=== PATIENT | female | born 1985 | race Caucasian/White ===

== ENCOUNTER 2016-05-27 08:37 | Emergency (ER) | payer OTHER | END 2016-05-27 10:19 | disposition home or self-care (01) | LOC: FER 08:37 | DX: S43.402A Unspecified sprain of left shoulder joint, initial encounter (principal); E11.40 Type 2 diabetes mellitus with diabetic neuropathy, unspecified; Z87.442 Personal history of urinary calculi; Z87.19 Personal history of other diseases of the digestive system; Z88.2 Allergy status to sulfonamides; W08.XXXA Fall from other furniture, initial encounter | CPT/HCPCS: 72040; 73030; 99283 ==

== ENCOUNTER 2020-03-05 19:31 | Emergency (ER) | payer OTHER ==
[~2020-03-05 19:31] MED LIST: AZITHROMYCIN250 MG PO; BACLOFEN 10MG T10 MG PO; BENTYL10 MG PO; CARAFATE1 G1 PO; CARAFATE1 GM PO; CEFDINIR300 MG PO; CLEOCIN300 MG PO; FAMCICLOVIR500 MG PO; FLEXERIL10 MG PO; HUMALOG 75100 UNIT/M SC; HUMALOG100 UNIT/1 SC; IBUPROFEN800 MG PO; K-DUR20 MEQ PO; MACROBID100 MG PO; NAPROSYN500 MG PO; NEURONTIN400 MG PO; NORCO 5-325 TA1 EACH PO; OMEPRAZOLE 20MG20 MG PO; PERCOCET 5-3251 EACH PO; PHENERGAN25 M1 PO; PHENERGAN25 MG PR; PROMETHEGA12.5 MG/SU PR; PROTONIX 40MG T40 MG PO; TRESIBA FL100 UNIT/1 SC; VALACYCLOVIR1000 MG PO; ZANTAC150 MG PO; ZOFRAN4 MG PO; ZOFRAN4 MG SL; ZOVIRAX800 MG PO
[2020-03-05 20:17] LABS: BASOPHIL 0.6 % (0-2); EOSINOPHIL 1.3 % (0-5); HCT 41.8 % (37.0-47.0); HGB 14.4 g/dl (12.5-16.0); LYMPHOCYTE 23.6 % (15-48); MCH 29.4 pg (25.0-31.0); MCHC 34.4 g/dL (32.0-36.0); MCV 85.5 fL (78.0-100.0); MONOCYTE 4.1 % (0-12); MPV 10.4 fL (6.0-9.5); NEUTROPHIL 70.3 % (41-80); NRBC 0; PLT 302 K/uL (150-400); RBC 4.89 M/uL (4.20-5.40); RDW 12.3 % (11.5-14.0); WBC 6.9 K/uL (4.0-10.5)
[2020-03-05 20:26] LABS: ALBUMIN 3.7 g/dL (3.4-5.0); BILIRUBIN - TOTAL 0.2 mg/dL (0.2-1.0); BUN/CREAT RATIO (CALC) 10.7 RATIO; CREATININE 0.56 mg/dL (0.51-0.95); GLOBULIN (CALCULATION) 4.2 g/dL; POTASSIUM 3.8 mmol/L (3.5-5.1); TOTAL PROTEIN 7.9 g/dL (6.4-8.2)
[2020-03-05 20:31] LABS: LACTIC ACID 2.4 mmol/L (0.4-1.9)
[2020-03-05 20:39] LABS: BILIRUBIN NEGATIVE (NEGATIVE); BLOOD 3+ Ery/uL (NEGATIVE); CLARITY CLEAR (CLEAR); COLOR YELLOW (YELLOW); GLUCOSE (U) 3+ mg/dL (NORMAL); LEUKOCYTES TRACE Leu/uL (NEGATIVE); NITRITE NEGATIVE (NEGATIVE); PROTEIN NEGATIVE (NEGATIVE); SPECIFIC GRAVITY <=1.005 (1.001-1.030); UROBILINOGEN 0.2 mg/dL (0.2-1.0)
[2020-03-05 20:46] LABS: BACTERIA TRACE; URINARY RBC 20-50; URINARY WBC RARE
[2020-03-05] MEDS ORDERED: PERCOCET 5-3251 EACH PO (23:41)
[2020-03-05] MEDS ORDERED: FLOMAX0.4 MG PO (23:41)
[2020-03-05] MEDS ORDERED: ONDANSETRON ODT4 MG SL (23:41)
== END 2020-03-05 23:56 | disposition home or self-care (01) ==
LOC: FER 19:31
PROVIDERS: Emergency Medicine Emergency Medical Services
DX: R10.32 Left lower quadrant pain (principal); R31.9 Hematuria, unspecified; R11.2 Nausea with vomiting, unspecified; R19.7 Diarrhea, unspecified; E11.40 Type 2 diabetes mellitus with diabetic neuropathy, unspecified; K21.9 Gastro-esophageal reflux disease without esophagitis; Z86.16 Personal history of COVID-19; Z90.49 Acquired absence of other specified parts of digestive tract; Z90.710 Acquired absence of both cervix and uterus; Z98.890 Other specified postprocedural states; Z88.5 Allergy status to narcotic agent; Z88.8 Allergy status to other drugs, medicaments and biological substances; Z88.2 Allergy status to sulfonamides; Z79.4 Long term (current) use of insulin; Z79.899 Other long term (current) drug therapy
CPT/HCPCS: 36415; 80053; 81001; 82009; 83605; 83690; 84145; 85025; 93005; J1170; J2405; J7030; Q9967

== ENCOUNTER 2020-03-09 10:14 | Day surgery (SDCO) | payer OTHER ==
[~2020-03-09 10:14] MED LIST changes: +FLOMAX0.4 MG PO; +ONDANSETRON ODT4 MG SL
[2020-03-09 11:44] LABS: BASOPHIL 0.4 % (0-2); EOSINOPHIL 1.5 % (0-5); HCT 39.9 % (37.0-47.0); HGB 13.8 g/dl (12.5-16.0); LYMPHOCYTE 20.3 % (15-48); MCH 29.7 pg (25.0-31.0); MCHC 34.6 g/dL (32.0-36.0); MCV 85.8 fL (78.0-100.0); MONOCYTE 4.7 % (0-12); MPV 10.7 fL (6.0-9.5); NEUTROPHIL 72.8 % (41-80); NRBC 0; PLT 303 K/uL (150-400); RBC 4.65 M/uL (4.20-5.40); RDW 12.4 % (11.5-14.0)
[2020-03-09 11:58] LABS: ALBUMIN 3.4 g/dL (3.4-5.0); BILIRUBIN - TOTAL 0.2 mg/dL (0.2-1.0); BUN/CREAT RATIO (CALC) 15.8 RATIO; CREATININE 0.57 mg/dL (0.51-0.95); GLOBULIN (CALCULATION) 4.2 g/dL; POTASSIUM 3.9 mmol/L (3.5-5.1); TOTAL PROTEIN 7.6 g/dL (6.4-8.2)
[2020-03-09 14:07] LABS: BILIRUBIN NEGATIVE (NEGATIVE); BLOOD TRACE-INTACT Ery/uL (NEGATIVE); CLARITY CLEAR (CLEAR); COLOR YELLOW (YELLOW); GLUCOSE (U) 3+ mg/dL (NORMAL); LEUKOCYTES NEGATIVE Leu/uL (NEGATIVE); NITRITE NEGATIVE (NEGATIVE); PROTEIN NEGATIVE (NEGATIVE); SPECIFIC GRAVITY <=1.005 (1.001-1.030); UROBILINOGEN 0.2 mg/dL (0.2-1.0); pH 6.5 (5.0-9.0)
[2020-03-09 14:13] LABS: BACTERIA 1+; URINARY RBC RARE
[2020-03-09 14:19] LABS: CORONAVIRUS 2019 SARS-COV-2 NEGATIVE (NEGATIVE); INFLUENZA A NAA NEGATIVE (NEGATIVE)
[2020-03-09] MEDS ORDERED: PRILOSEC20 MG PO (14:58)
[2020-03-09] MEDS ORDERED: ATARAX25 MG PO (15:01)
[2020-03-10 07:11] LABS: BASOPHIL 0.5 % (0-2); EOSINOPHIL 2.7 % (0-5); HCT 36.2 % (37.0-47.0); HGB 11.9 g/dl (12.5-16.0); LYMPHOCYTE 35.6 % (15-48); MCH 29.2 pg (25.0-31.0); MCHC 32.9 g/dL (32.0-36.0); MCV 88.7 fL (78.0-100.0); MONOCYTE 5.3 % (0-12); MPV 10.5 fL (6.0-9.5); NEUTROPHIL 55.7 % (41-80); NRBC 0; PLT 259 K/uL (150-400); RBC 4.08 M/uL (4.20-5.40); RDW 12.5 % (11.5-14.0); WBC 8.5 K/uL (4.0-10.5)
[2020-03-10 07:29] LABS: CREATININE 0.6 mg/dL (0.51-0.95); POTASSIUM 4.2 mmol/L (3.5-5.1)
[2020-03-11 06:54] LABS: BASOPHIL 0.5 % (0-2); EOSINOPHIL 2.3 % (0-5); HCT 38.1 % (37.0-47.0); HGB 12.7 g/dl (12.5-16.0); LYMPHOCYTE 25.6 % (15-48); MCH 29.2 pg (25.0-31.0); MCHC 33.3 g/dL (32.0-36.0); MCV 87.6 fL (78.0-100.0); MONOCYTE 5.6 % (0-12); MPV 10.8 fL (6.0-9.5); NEUTROPHIL 65.8 % (41-80); NRBC 0; PLT 267 K/uL (150-400); RBC 4.35 M/uL (4.20-5.40); RDW 12.2 % (11.5-14.0)
[2020-03-11 07:19] LABS: ALBUMIN 3.1 g/dL (3.4-5.0); BILIRUBIN - TOTAL 0.2 mg/dL (0.2-1.0); BUN/CREAT RATIO (CALC) 6.5 RATIO; CREATININE 0.62 mg/dL (0.51-0.95); GLOBULIN (CALCULATION) 3.8 g/dL; POTASSIUM 3.5 mmol/L (3.5-5.1); TOTAL PROTEIN 6.9 g/dL (6.4-8.2)
[2020-03-11] MEDS ORDERED: PROTONIX 40MG T40 MG PO (10:34)
[2020-03-11] MEDS ORDERED: CARAFATE S500 MG/TSP PO (10:34)
[2020-03-11] MEDS ORDERED: TRESIBA FL100 UNIT/1 SC (10:34)
[2020-03-11] MEDS ORDERED: PHENERGAN12.5 M1 PO (10:34)
[2020-03-11] MEDS ORDERED: ONDANSETRON ODT4 MG PO (10:34)
[2020-03-11] MEDS ORDERED: OXYCODONE-ACET1 EAC1 PO (10:34)
[2020-03-11] MEDS ORDERED: GLUCAGON EMERGEN1 MG IM (14:05)
== END 2020-03-11 15:25 | disposition home or self-care (01) ==
LOC: FER 10:14 → FMS 13:09
PROVIDERS: Allergy & Immunology Allergy; Emergency Medicine; ADMIT Internal Medicine
DX: E11.43 Type 2 diabetes mellitus with diabetic autonomic (poly)neuropathy (principal); E11.65 Type 2 diabetes mellitus with hyperglycemia; K31.84 Gastroparesis; K52.9 Noninfective gastroenteritis and colitis, unspecified; K21.9 Gastro-esophageal reflux disease without esophagitis; K27.9 Peptic ulcer, site unspecified, unspecified as acute or chronic, without hemorrhage or perforation; M79.7 Fibromyalgia; E11.40 Type 2 diabetes mellitus with diabetic neuropathy, unspecified; Z79.4 Long term (current) use of insulin; Z79.899 Other long term (current) drug therapy; Z88.2 Allergy status to sulfonamides; Z88.5 Allergy status to narcotic agent; Z88.8 Allergy status to other drugs, medicaments and biological substances; Z20.822 Contact with and (suspected) exposure to COVID-19
CPT/HCPCS: 36415; 74220; 80048; 80053; 81001; 82009; 82962; 83690; 85025; 87045; 87046; 87077; 87205; 87339; C9113; G0378; J1170; J2270; J2405; J2765; J3480; J7030; U0002

== ENCOUNTER 2020-03-31 21:38 | Emergency (ER) | payer OTHER ==
[~2020-03-31 21:38] MED LIST changes: +ATARAX25 MG PO; +CARAFATE S500 MG/TSP PO; +GLUCAGON EMERGEN1 MG IM; +ONDANSETRON ODT4 MG PO; +OXYCODONE-ACET1 EAC1 PO; +PHENERGAN12.5 M1 PO; +PRILOSEC20 MG PO
[2020-03-31 22:16] LABS: BASOPHIL 0.6 % (0-2); EOSINOPHIL 0.9 % (0-5); HCT 39.9 % (37.0-47.0); HGB 13.8 g/dl (12.5-16.0); LYMPHOCYTE 22.1 % (15-48); MCH 29.3 pg (25.0-31.0); MCHC 34.6 g/dL (32.0-36.0); MCV 84.7 fL (78.0-100.0); MONOCYTE 4.8 % (0-12); MPV 10.4 fL (6.0-9.5); NEUTROPHIL 71.2 % (41-80); NRBC 0; PLT 307 K/uL (150-400); RBC 4.71 M/uL (4.20-5.40); RDW 12.3 % (11.5-14.0); WBC 8.5 K/uL (4.0-10.5)
[2020-03-31 22:42] LABS: LACTIC ACID 2.9 mmol/L (0.4-1.9)
[2020-03-31 22:46] LABS: ALBUMIN 3.6 g/dL (3.4-5.0); BILIRUBIN - TOTAL 0.2 mg/dL (0.2-1.0); CREATININE 0.6 mg/dL (0.51-0.95); GLOBULIN (CALCULATION) 4.1 g/dL; POTASSIUM 3.4 mmol/L (3.5-5.1); TOTAL PROTEIN 7.7 g/dL (6.4-8.2)
[2020-03-31 22:51] LABS: BILIRUBIN NEGATIVE (NEGATIVE); BLOOD TRACE-INTACT Ery/uL (NEGATIVE); CLARITY CLEAR (CLEAR); COLOR YELLOW (YELLOW); GLUCOSE (U) 2+ mg/dL (NORMAL); LEUKOCYTES 2+ Leu/uL (NEGATIVE); NITRITE NEGATIVE (NEGATIVE); PROTEIN NEGATIVE (NEGATIVE); SPECIFIC GRAVITY <=1.005 (1.001-1.030); UROBILINOGEN 0.2 mg/dL (0.2-1.0)
[2020-03-31 23:03] LABS: BACTERIA 2+
[2020-04-01] MEDS ORDERED: CARAFATE S500 MG/TSP PO (01:47)
[2020-04-01] MEDS ORDERED: OXYCODONE-ACET1 EAC1 PO (01:47)
[2020-04-01] MEDS ORDERED: ONDANSETRON ODT4 MG SL (01:47)
== END 2020-04-01 01:56 | disposition left against medical advice (07) ==
LOC: FER 21:38
PROVIDERS: Emergency Medicine Emergency Medical Services
DX: R10.12 Left upper quadrant pain (principal); R00.0 Tachycardia, unspecified; R11.2 Nausea with vomiting, unspecified; U07.1 COVID-19; E11.40 Type 2 diabetes mellitus with diabetic neuropathy, unspecified; E11.43 Type 2 diabetes mellitus with diabetic autonomic (poly)neuropathy; K31.84 Gastroparesis; Z88.2 Allergy status to sulfonamides; Z88.5 Allergy status to narcotic agent; Z88.8 Allergy status to other drugs, medicaments and biological substances
CPT/HCPCS: 36415; 74022; 80053; 81001; 82009; 83605; 83690; 84145; 85025; 87088; 93005; 96372; J0500; J1170; J1885; J2405; J2543; J2550; J7120; U0002

== ENCOUNTER 2020-04-21 18:58 | Emergency (ER) | payer OTHER ==
[2020-04-21 20:27] LABS: BASOPHIL 0.4 % (0-2); EOSINOPHIL 0.3 % (0-5); HCT 38.4 % (37.0-47.0); HGB 13.6 g/dl (12.5-16.0); LYMPHOCYTE 14.8 % (15-48); MCH 29.8 pg (25.0-31.0); MCHC 35.4 g/dL (32.0-36.0); MONOCYTE 3.6 % (0-12); MPV 10.7 fL (6.0-9.5); NEUTROPHIL 80.4 % (41-80); NRBC 0; PLT 328 K/uL (150-400); RBC 4.57 M/uL (4.20-5.40); RDW 12.4 % (11.5-14.0); WBC 10.5 K/uL (4.0-10.5)
[2020-04-21 20:35] LABS: ALBUMIN 3.8 g/dL (3.4-5.0); BILIRUBIN - TOTAL 0.4 mg/dL (0.2-1.0); BUN/CREAT RATIO (CALC) 14.8 RATIO; CREATININE 0.54 mg/dL (0.51-0.95); GLOBULIN (CALCULATION) 4.2 g/dL; POTASSIUM 3.7 mmol/L (3.5-5.1)
[2020-04-21 21:18] LABS: BILIRUBIN NEGATIVE (NEGATIVE); BLOOD TRACE-INTACT Ery/uL (NEGATIVE); CLARITY CLEAR (CLEAR); COLOR YELLOW (YELLOW); GLUCOSE (U) 3+ mg/dL (NORMAL); LEUKOCYTES 1+ Leu/uL (NEGATIVE); NITRITE NEGATIVE (NEGATIVE); PROTEIN NEGATIVE (NEGATIVE); SPECIFIC GRAVITY <=1.005 (1.001-1.030); UROBILINOGEN 0.2 mg/dL (0.2-1.0)
[2020-04-21 21:27] LABS: BACTERIA 2+; URINARY RBC RARE; YEAST PRESENT
[2020-04-22] MEDS ORDERED: ZOVIRAX800 MG PO (02:07)
[2020-04-22] MEDS ORDERED: NEURONTIN300 MG PO (02:07)
[2020-04-22] MEDS ORDERED: PERCOCET 5-3251 EACH PO (02:07)
[2020-04-22] MEDS ORDERED: COMPAZINE10 MG PO (02:07)
== END 2020-04-22 02:23 | disposition home or self-care (01) ==
LOC: FER 18:58
PROVIDERS: Nurse Practitioner Family
DX: R10.84 Generalized abdominal pain (principal); R11.2 Nausea with vomiting, unspecified; B02.9 Zoster without complications; E10.43 Type 1 diabetes mellitus with diabetic autonomic (poly)neuropathy; K31.84 Gastroparesis; Z88.2 Allergy status to sulfonamides; Z88.5 Allergy status to narcotic agent; Z88.8 Allergy status to other drugs, medicaments and biological substances
CPT/HCPCS: 36415; 80053; 81001; 83690; 84484; 85025; 93005; J0780; J1170; J1200; J1885; J2405; J7030; Q9967

== ENCOUNTER 2020-04-25 21:35 | Emergency (ER) | payer OTHER ==
[~2020-04-25 21:35] MED LIST changes: +COMPAZINE10 MG PO; +NEURONTIN300 MG PO
[2020-04-25 22:54] LABS: BILIRUBIN NEGATIVE (NEGATIVE); BLOOD TRACE-INTACT Ery/uL (NEGATIVE); CLARITY CLEAR (CLEAR); COLOR YELLOW (YELLOW); GLUCOSE (U) 3+ mg/dL (NORMAL); LEUKOCYTES 1+ Leu/uL (NEGATIVE); NITRITE NEGATIVE (NEGATIVE); PROTEIN NEGATIVE (NEGATIVE); UROBILINOGEN 0.2 mg/dL (0.2-1.0)
[2020-04-25 23:01] LABS: URINARY RBC RARE
[2020-04-25 23:02] LABS: AMORPHOUS URATES CRYSTALS MODERATE; BACTERIA 1+
[2020-04-25] MEDS ORDERED: PERCOCET 7.5/321 TAB PO (23:11)
[2020-04-25] MEDS ORDERED: LIDOCAINE 5% P1 EACH TOP (23:11)
[2020-04-25] MEDS ORDERED: ZOVIRAX200 MG/5 M PO (23:14)
== END 2020-04-26 00:04 | disposition home or self-care (01) ==
LOC: FER 21:35
PROVIDERS: Emergency Medicine Emergency Medical Services
DX: B02.9 Zoster without complications (principal); E11.40 Type 2 diabetes mellitus with diabetic neuropathy, unspecified; R10.84 Generalized abdominal pain; Z79.4 Long term (current) use of insulin; Z88.5 Allergy status to narcotic agent; Z88.8 Allergy status to other drugs, medicaments and biological substances; Z88.2 Allergy status to sulfonamides
CPT/HCPCS: 81001; 96372; 99283; J1170; J2405; J2550

== ENCOUNTER 2020-04-29 14:58 | Emergency (ER) | payer OTHER ==
[~2020-04-29 14:58] MED LIST changes: +LIDOCAINE 5% P1 EACH TOP; +PERCOCET 7.5/321 TAB PO; +ZOVIRAX200 MG/5 M PO
[2020-04-29 17:30] LABS: BASOPHIL 0.5 % (0-2); EOSINOPHIL 0.6 % (0-5); HCT 37.5 % (37.0-47.0); HGB 13.2 g/dl (12.5-16.0); MCH 30.2 pg (25.0-31.0); MCHC 35.2 g/dL (32.0-36.0); MCV 85.8 fL (78.0-100.0); MONOCYTE 4.6 % (0-12); MPV 10.7 fL (6.0-9.5); NEUTROPHIL 77.1 % (41-80); NRBC 0; PLT 308 K/uL (150-400); RBC 4.37 M/uL (4.20-5.40); RDW 12.4 % (11.5-14.0); WBC 8.6 K/uL (4.0-10.5)
[2020-04-29 17:46] LABS: ALBUMIN 3.7 g/dL (3.4-5.0); BILIRUBIN - TOTAL 0.3 mg/dL (0.2-1.0); CREATININE 0.5 mg/dL (0.51-0.95); GLOBULIN (CALCULATION) 3.8 g/dL; POTASSIUM 3.7 mmol/L (3.5-5.1); TOTAL PROTEIN 7.5 g/dL (6.4-8.2)
[2020-04-29 18:26] LABS: BILIRUBIN NEGATIVE (NEGATIVE); BLOOD NEGATIVE Ery/uL (NEGATIVE); CLARITY CLEAR (CLEAR); COLOR YELLOW (YELLOW); GLUCOSE (U) 3+ mg/dL (NORMAL); LEUKOCYTES TRACE Leu/uL (NEGATIVE); NITRITE NEGATIVE (NEGATIVE); PROTEIN NEGATIVE (NEGATIVE); UROBILINOGEN 0.2 mg/dL (0.2-1.0)
[2020-04-29 18:36] LABS: BACTERIA 2+; URINARY RBC RARE
[2020-04-29] MEDS ORDERED: VALACYCLOVIR1000 MG PO (18:47)
[2020-04-29] MEDS ORDERED: PERCOCET 7.5/321 TAB PO (18:47)
== END 2020-04-29 20:23 | disposition home or self-care (01) ==
LOC: FER 14:58
PROVIDERS: Emergency Medicine
DX: B02.9 Zoster without complications (principal); B02.29 Other postherpetic nervous system involvement; R00.0 Tachycardia, unspecified; R94.31 Abnormal electrocardiogram [ECG] [EKG]; E66.9 Obesity, unspecified; E11.40 Type 2 diabetes mellitus with diabetic neuropathy, unspecified; E11.43 Type 2 diabetes mellitus with diabetic autonomic (poly)neuropathy; K31.84 Gastroparesis; Z88.2 Allergy status to sulfonamides; Z88.8 Allergy status to other drugs, medicaments and biological substances; Z88.5 Allergy status to narcotic agent
CPT/HCPCS: 36415; 71045; 80053; 81001; 83605; 85025; 87040; 87088; 93005; 96372; J1170; J2405; J7030

== ENCOUNTER 2020-05-01 19:18 | Emergency (ER) | payer OTHER ==
[2020-05-01] MEDS ORDERED: ZOFRAN4 M1 PO (20:57)
[2020-05-01] MEDS ORDERED: PERCOCET 7.5/321 TAB PO (20:57)
== END 2020-05-01 21:12 | disposition home or self-care (01) ==
LOC: FER 19:18
DX: B02.9 Zoster without complications (principal); R11.2 Nausea with vomiting, unspecified; Z88.8 Allergy status to other drugs, medicaments and biological substances; Z88.5 Allergy status to narcotic agent; Z88.2 Allergy status to sulfonamides
CPT/HCPCS: 99283; J1170

== ENCOUNTER 2020-05-25 19:20 | Emergency (ER) | payer OTHER ==
[~2020-05-25 19:20] MED LIST changes: +ZOFRAN4 M1 PO
[2020-05-25 20:58] LABS: BASOPHIL 0.6 % (0-2); EOSINOPHIL 2.7 % (0-5); HCT 35.6 % (37.0-47.0); HGB 12.5 g/dl (12.5-16.0); LYMPHOCYTE 19.3 % (15-48); MCHC 35.1 g/dL (32.0-36.0); MCV 85.6 fL (78.0-100.0); MONOCYTE 5.2 % (0-12); MPV 10.7 fL (6.0-9.5); NEUTROPHIL 71.9 % (41-80); NRBC 0; PLT 274 K/uL (150-400); RBC 4.16 M/uL (4.20-5.40); RDW 12.4 % (11.5-14.0); WBC 6.7 K/uL (4.0-10.5)
[2020-05-25 21:11] LABS: ALBUMIN 3.6 g/dL (3.4-5.0); BILIRUBIN - TOTAL 0.4 mg/dL (0.2-1.0); BUN/CREAT RATIO (CALC) 6.9 RATIO; CREATININE 0.58 mg/dL (0.51-0.95); GLOBULIN (CALCULATION) 3.8 g/dL; POTASSIUM 3.8 mmol/L (3.5-5.1); TOTAL PROTEIN 7.4 g/dL (6.4-8.2)
[2020-05-25 21:42] LABS: BILIRUBIN NEGATIVE (NEGATIVE); BLOOD TRACE-INTACT Ery/uL (NEGATIVE); CLARITY CLEAR (CLEAR); COLOR YELLOW (YELLOW); GLUCOSE (U) 3+ mg/dL (NORMAL); LEUKOCYTES 1+ Leu/uL (NEGATIVE); NITRITE NEGATIVE (NEGATIVE); PROTEIN NEGATIVE (NEGATIVE); UROBILINOGEN 0.2 mg/dL (0.2-1.0)
[2020-05-25 21:48] LABS: BACTERIA 1+; URINARY RBC RARE
[2020-05-25] MEDS ORDERED: ONDANSETRON ODT4 MG PO (22:12)
[2020-05-25] MEDS ORDERED: PROMETHEGA12.5 MG/SU PR (22:12)
== END 2020-05-25 22:50 | disposition home or self-care (01) ==
LOC: FER 19:20
PROVIDERS: Nurse Practitioner Family
DX: R11.2 Nausea with vomiting, unspecified (principal); R10.9 Unspecified abdominal pain; E10.9 Type 1 diabetes mellitus without complications; Z87.19 Personal history of other diseases of the digestive system; Z98.890 Other specified postprocedural states; Z90.49 Acquired absence of other specified parts of digestive tract; Z88.2 Allergy status to sulfonamides; Z88.5 Allergy status to narcotic agent; Z88.8 Allergy status to other drugs, medicaments and biological substances
CPT/HCPCS: 36415; 80053; 81001; 83690; 85025; J1170; J2405; J7030

== ENCOUNTER 2020-05-27 22:52 | Emergency (ER) | payer OTHER | END 2020-05-27 23:58 | disposition left against medical advice (07) | LOC: FER 22:52 | DX: Z53.8 Procedure and treatment not carried out for other reasons (principal) ==

== ENCOUNTER 2020-05-28 18:11 | Emergency (ER) | payer OTHER ==
[2020-05-28 22:19] LABS: BASOPHIL 0.3 % (0-2); EOSINOPHIL 1.2 % (0-5); HCT 38.5 % (37.0-47.0); HGB 13.7 g/dl (12.5-16.0); LYMPHOCYTE 20.6 % (15-48); MCH 30.4 pg (25.0-31.0); MCHC 35.6 g/dL (32.0-36.0); MCV 85.4 fL (78.0-100.0); MPV 10.8 fL (6.0-9.5); NEUTROPHIL 73.6 % (41-80); NRBC 0; PLT 328 K/uL (150-400); RBC 4.51 M/uL (4.20-5.40); RDW 12.3 % (11.5-14.0); WBC 9.2 K/uL (4.0-10.5)
[2020-05-28 22:26] LABS: INR 1.18 (0.9-1.2); PROTHROMBIN TIME 14.2 SECONDS (11.4-13.6); PTT 31.8 SECONDS (22.2-34.7)
[2020-05-28 22:42] LABS: ALBUMIN 3.8 g/dL (3.4-5.0); BILIRUBIN - TOTAL 0.2 mg/dL (0.2-1.0); BUN/CREAT RATIO (CALC) 7.1 RATIO; CREATININE 0.56 mg/dL (0.51-0.95); GLOBULIN (CALCULATION) 3.9 g/dL; MAGNESIUM 1.3 mg/dL (1.8-2.4); POTASSIUM 3.5 mmol/L (3.5-5.1); TOTAL PROTEIN 7.7 g/dL (6.4-8.2)
[2020-05-28 22:46] LABS: PRO-BNP 11 pg/mL (<125)
== END 2020-05-29 02:19 | disposition home or self-care (01) ==
LOC: FER 18:11
PROVIDERS: Student in an Organized Health Care Education/Training Program
DX: E11.65 Type 2 diabetes mellitus with hyperglycemia (principal); G89.29 Other chronic pain; E83.42 Hypomagnesemia; E11.43 Type 2 diabetes mellitus with diabetic autonomic (poly)neuropathy; K31.84 Gastroparesis; Z88.2 Allergy status to sulfonamides; Z88.5 Allergy status to narcotic agent; Z88.8 Allergy status to other drugs, medicaments and biological substances
CPT/HCPCS: 36415; 80053; 83605; 83735; 83880; 84484; 85025; 85610; 85730; 87040; J1885; J2405; J7030

== ENCOUNTER 2020-06-15 07:28 | Emergency (ER) | payer OTHER ==
[2020-06-15 10:47] LABS: BASOPHIL 0.6 % (0-2); EOSINOPHIL 1.4 % (0-5); HCT 37.4 % (37.0-47.0); HGB 13.4 g/dl (12.5-16.0); LYMPHOCYTE 20.3 % (15-48); MCH 30.5 pg (25.0-31.0); MCHC 35.8 g/dL (32.0-36.0); MCV 85.2 fL (78.0-100.0); MONOCYTE 5.1 % (0-12); MPV 10.5 fL (6.0-9.5); NEUTROPHIL 72.3 % (41-80); NRBC 0; PLT 278 K/uL (150-400); RBC 4.39 M/uL (4.20-5.40)
[2020-06-15 11:05] LABS: ALBUMIN 3.4 g/dL (3.4-5.0); BILIRUBIN - TOTAL 0.2 mg/dL (0.2-1.0); CREATININE 0.5 mg/dL (0.51-0.95); GLOBULIN (CALCULATION) 3.8 g/dL; POTASSIUM 3.8 mmol/L (3.5-5.1); TOTAL PROTEIN 7.2 g/dL (6.4-8.2)
[2020-06-15 11:25] LABS: BILIRUBIN NEGATIVE (NEGATIVE); BLOOD 3+ Ery/uL (NEGATIVE); CLARITY CLEAR (CLEAR); COLOR YELLOW (YELLOW); GLUCOSE (U) 3+ mg/dL (NORMAL); LEUKOCYTES NEGATIVE Leu/uL (NEGATIVE); NITRITE NEGATIVE (NEGATIVE); PROTEIN NEGATIVE (NEGATIVE); UROBILINOGEN 0.2 mg/dL (0.2-1.0)
[2020-06-15 11:40] LABS: BACTERIA 1+; URINARY RBC 20-50
== END 2020-06-15 12:20 | disposition home or self-care (01) ==
LOC: FER 07:28
PROVIDERS: Internal Medicine
DX: K59.00 Constipation, unspecified (principal); N30.11 Interstitial cystitis (chronic) with hematuria; E10.43 Type 1 diabetes mellitus with diabetic autonomic (poly)neuropathy; K31.84 Gastroparesis; Z90.49 Acquired absence of other specified parts of digestive tract; Z90.710 Acquired absence of both cervix and uterus; Z98.890 Other specified postprocedural states; Z88.2 Allergy status to sulfonamides; Z88.5 Allergy status to narcotic agent; Z88.8 Allergy status to other drugs, medicaments and biological substances
CPT/HCPCS: 36415; 74018; 80053; 81001; 85025

== ENCOUNTER 2020-08-19 19:36 | Emergency (ER) | payer OTHER ==
[2020-08-19 20:24] LABS: BILIRUBIN NEGATIVE (NEGATIVE); BLOOD NEGATIVE Ery/uL (NEGATIVE); CLARITY CLEAR (CLEAR); COLOR YELLOW (YELLOW); GLUCOSE (U) 3+ mg/dL (NORMAL); LEUKOCYTES NEGATIVE Leu/uL (NEGATIVE); NITRITE NEGATIVE (NEGATIVE); PROTEIN NEGATIVE (NEGATIVE); SPECIFIC GRAVITY <=1.005 (1.001-1.030); UROBILINOGEN 0.2 mg/dL (0.2-1.0)
[2020-08-19 20:48] LABS: BASOPHIL 0.3 % (0-2); EOSINOPHIL 2.5 % (0-5); HCT 36.5 % (37.0-47.0); HGB 12.9 g/dl (12.5-16.0); MCH 30.3 pg (25.0-31.0); MCHC 35.3 g/dL (32.0-36.0); MCV 85.7 fL (78.0-100.0); MONOCYTE 5.8 % (0-12); MPV 10.5 fL (6.0-9.5); NEUTROPHIL 74.2 % (41-80); NRBC 0; PLT 256 K/uL (150-400); RBC 4.26 M/uL (4.20-5.40); RDW 12.4 % (11.5-14.0); WBC 8.7 K/uL (4.0-10.5)
[2020-08-19 21:14] LABS: ALBUMIN 3.5 g/dL (3.4-5.0); BILIRUBIN - TOTAL 0.2 mg/dL (0.2-1.0); BUN/CREAT RATIO (CALC) 7.2 RATIO; CREATININE 0.69 mg/dL (0.51-0.95); POTASSIUM 3.3 mmol/L (3.5-5.1); TOTAL PROTEIN 7.5 g/dL (6.4-8.2)
[2020-08-19] MEDS ORDERED: CYCLOBENZAPRINE10 MG PO (23:26)
== END 2020-08-19 23:35 | disposition home or self-care (01) ==
LOC: FER 19:36
PROVIDERS: Emergency Medicine
DX: R10.32 Left lower quadrant pain (principal); M54.5 Low back pain; E10.43 Type 1 diabetes mellitus with diabetic autonomic (poly)neuropathy; K31.84 Gastroparesis; Z90.49 Acquired absence of other specified parts of digestive tract; Z88.2 Allergy status to sulfonamides; Z88.8 Allergy status to other drugs, medicaments and biological substances; Z88.5 Allergy status to narcotic agent
CPT/HCPCS: 36415; 80053; 81003; 82150; 83690; 85025; J0595; J1885; J2405; J2550; J7030

== ENCOUNTER 2021-02-07 01:18 | Emergency (ER) | payer OTHER ==
[~2021-02-07 01:18] MED LIST changes: +CYCLOBENZAPRINE10 MG PO
== END 2021-02-07 02:50 | disposition home or self-care (01) ==
LOC: FER 01:18
DX: E10.65 Type 1 diabetes mellitus with hyperglycemia (principal); Z88.2 Allergy status to sulfonamides; Z88.5 Allergy status to narcotic agent; Z88.8 Allergy status to other drugs, medicaments and biological substances
CPT/HCPCS: 99284

== ENCOUNTER 2021-04-03 18:32 | Emergency (ER) | payer OTHER ==
[2021-04-03 20:20] LABS: BASOPHIL 0.4 % (0-2); HCT 36.1 % (37.0-47.0); HGB 12.9 g/dl (12.5-16.0); LYMPHOCYTE 26.3 % (15-48); MCH 29.7 pg (25.0-31.0); MCHC 35.7 g/dL (32.0-36.0); MCV 83.2 fL (78.0-100.0); MONOCYTE 4.6 % (0-12); MPV 10.3 fL (6.0-9.5); NEUTROPHIL 67.4 % (41-80); NRBC 0; PLT 294 K/uL (150-400); RBC 4.34 M/uL (4.20-5.40)
[2021-04-03 20:29] LABS: ALBUMIN 3.6 g/dL (3.4-5.0); BILIRUBIN - TOTAL 0.3 mg/dL (0.2-1.0); BUN/CREAT RATIO (CALC) 1.9 RATIO; CREATININE 0.53 mg/dL (0.51-0.95); GLOBULIN (CALCULATION) 3.8 g/dL; POTASSIUM 3.3 mmol/L (3.5-5.1); TOTAL PROTEIN 7.4 g/dL (6.4-8.2)
[2021-04-03] MEDS ORDERED: CARAFATE1 GM PO (21:14)
[2021-04-03] MEDS ORDERED: ONDANSETRON ODT4 MG PO (21:14)
== END 2021-04-03 21:43 | disposition home or self-care (01) ==
LOC: FER 18:32
PROVIDERS: Internal Medicine
DX: K21.9 Gastro-esophageal reflux disease without esophagitis (principal); N83.8 Other noninflammatory disorders of ovary, fallopian tube and broad ligament; E10.43 Type 1 diabetes mellitus with diabetic autonomic (poly)neuropathy; K31.84 Gastroparesis; Z88.8 Allergy status to other drugs, medicaments and biological substances; Z88.2 Allergy status to sulfonamides; Z88.6 Allergy status to analgesic agent; Z86.16 Personal history of COVID-19
CPT/HCPCS: 36415; 70490; 71250; 80053; 83690; 85025

== ENCOUNTER 2021-04-26 16:17 | Emergency (ER) | payer OTHER ==
[~2021-04-26] VITALS: Ht 165.1 cm; Wt 77.1 kg
[2021-04-26 17:18] LABS: CORONAVIRUS 2019 SARS-COV-2 NEGATIVE (NEGATIVE); INFLUENZA A NAA NEGATIVE (NEGATIVE)
[2021-04-26 17:47] LABS: BASOPHIL 0.5 % (0-2); EOSINOPHIL 1.5 % (0-5); HCT 37.9 % (37.0-47.0); HGB 13.3 g/dl (12.5-16.0); LYMPHOCYTE 22.1 % (15-48); MCH 29.4 pg (25.0-31.0); MCHC 35.1 g/dL (32.0-36.0); MCV 83.8 fL (78.0-100.0); MONOCYTE 5.5 % (0-12); MPV 10.3 fL (6.0-9.5); NEUTROPHIL 70.2 % (41-80); NRBC 0; PLT 280 K/uL (150-400); RBC 4.52 M/uL (4.20-5.40); RDW 12.2 % (11.5-14.0); WBC 8.5 K/uL (4.0-10.5)
[2021-04-26 18:05] LABS: BUN/CREAT RATIO (CALC) 5.1 RATIO; CREATININE 0.59 mg/dL (0.51-0.95); POTASSIUM 3.5 mmol/L (3.5-5.1)
== END 2021-04-26 18:49 | disposition home or self-care (01) ==
LOC: FER 16:17
PROVIDERS: Nurse Practitioner Family
DX: R13.10 Dysphagia, unspecified (principal); J02.9 Acute pharyngitis, unspecified; E10.9 Type 1 diabetes mellitus without complications; Z20.822 Contact with and (suspected) exposure to COVID-19
CPT/HCPCS: 36415; 70490; 80048; 85025; 87880; U0002

== ENCOUNTER 2021-04-30 12:38 | Emergency (ER) | payer OTHER ==
[2021-04-30 13:24] LABS: BASOPHIL 0.6 % (0-2); EOSINOPHIL 1.6 % (0-5); HCT 37.9 % (37.0-47.0); HGB 13.3 g/dl (12.5-16.0); LYMPHOCYTE 16.6 % (15-48); MCH 29.4 pg (25.0-31.0); MCHC 35.1 g/dL (32.0-36.0); MCV 83.8 fL (78.0-100.0); MONOCYTE 4.6 % (0-12); MPV 10.4 fL (6.0-9.5); NEUTROPHIL 76.3 % (41-80); NRBC 0; PLT 277 K/uL (150-400); RBC 4.52 M/uL (4.20-5.40); RDW 12.2 % (11.5-14.0); WBC 8.6 K/uL (4.0-10.5)
[2021-04-30 13:29] LABS: BILIRUBIN NEGATIVE (NEGATIVE); BLOOD TRACE-INTACT Ery/uL (NEGATIVE); CLARITY CLEAR (CLEAR); COLOR YELLOW (YELLOW); GLUCOSE (U) 1+ mg/dL (NORMAL); LEUKOCYTES 3+ Leu/uL (NEGATIVE); NITRITE NEGATIVE (NEGATIVE); PROTEIN NEGATIVE (NEGATIVE); SPECIFIC GRAVITY <=1.005 (1.001-1.030); UROBILINOGEN 0.2 mg/dL (0.2-1.0)
[2021-04-30 13:44] LABS: BACTERIA 2+; URINARY RBC RARE
[2021-04-30 13:47] LABS: ALBUMIN 4.1 g/dL (3.4-5.0); BILIRUBIN - TOTAL 0.3 mg/dL (0.2-1.0); BUN/CREAT RATIO (CALC) 3.6 RATIO; CREATININE 0.56 mg/dL (0.51-0.95); GLOBULIN (CALCULATION) 3.8 g/dL; POTASSIUM 3.5 mmol/L (3.5-5.1); TOTAL PROTEIN 7.9 g/dL (6.4-8.2)
[2021-04-30 14:02] LABS: CORONAVIRUS 2019 SARS-COV-2 NEGATIVE (NEGATIVE); INFLUENZA A NAA NEGATIVE (NEGATIVE)
[2021-04-30] MEDS ORDERED: AMOX TR-K CLV1 EAC4 PO (14:09)
== END 2021-04-30 14:18 | disposition home or self-care (01) ==
LOC: FER 12:38
PROVIDERS: Nurse Practitioner Family
DX: N39.0 Urinary tract infection, site not specified (principal); R10.32 Left lower quadrant pain; R11.0 Nausea; K21.9 Gastro-esophageal reflux disease without esophagitis; E10.9 Type 1 diabetes mellitus without complications; Z20.822 Contact with and (suspected) exposure to COVID-19; Z88.2 Allergy status to sulfonamides; Z88.8 Allergy status to other drugs, medicaments and biological substances; Z79.899 Other long term (current) drug therapy
CPT/HCPCS: 36415; 80053; 81001; 85025; 87088; 99284; J7030; U0002

== ENCOUNTER 2021-05-28 19:05 | Emergency (ER) | payer OTHER ==
[~2021-05-28 19:05] MED LIST changes: +AMOX TR-K CLV1 EAC4 PO
== END 2021-05-28 20:15 | disposition home or self-care (01) ==
LOC: FER 19:05
DX: F43.9 Reaction to severe stress, unspecified (principal); R03.0 Elevated blood-pressure reading, without diagnosis of hypertension; S13.9XXA Sprain of joints and ligaments of unspecified parts of neck, initial encounter; E10.9 Type 1 diabetes mellitus without complications; F17.210 Nicotine dependence, cigarettes, uncomplicated; Z79.4 Long term (current) use of insulin; Z88.2 Allergy status to sulfonamides; Z88.8 Allergy status to other drugs, medicaments and biological substances; Z88.6 Allergy status to analgesic agent
CPT/HCPCS: 99283

== ENCOUNTER 2021-09-09 15:23 | Emergency (ER) | payer OTHER ==
[2021-09-09 16:02] LABS: BILIRUBIN NEGATIVE (NEGATIVE); BLOOD 1+ Ery/uL (NEGATIVE); CLARITY CLEAR (CLEAR); COLOR YELLOW (YELLOW); GLUCOSE (U) 3+ mg/dL (NORMAL); LEUKOCYTES 2+ Leu/uL (NEGATIVE); NITRITE NEGATIVE (NEGATIVE); PROTEIN NEGATIVE (NEGATIVE); SPECIFIC GRAVITY <=1.005 (1.001-1.030); UROBILINOGEN 0.2 mg/dL (0.2-1.0)
[2021-09-09 16:12] LABS: BACTERIA 2+
[2021-09-09 16:40] LABS: BASOPHIL 0.4 % (0-2); EOSINOPHIL 1.7 % (0-5); HGB 13.9 g/dl (12.5-16.0); LYMPHOCYTE 15.7 % (15-48); MCH 29.4 pg (25.0-31.0); MCHC 34.8 g/dL (32.0-36.0); MCV 84.6 fL (78.0-100.0); MONOCYTE 4.5 % (0-12); NEUTROPHIL 77.3 % (41-80); NRBC 0; PLT 307 K/uL (150-400); RBC 4.73 M/uL (4.20-5.40); RDW 12.1 % (11.5-14.0)
[2021-09-09 16:56] LABS: BUN/CREAT RATIO (CALC) 7.9 RATIO; CREATININE 0.63 mg/dL (0.51-0.95); POTASSIUM 3.5 mmol/L (3.5-5.1)
[2021-09-09] MEDS ORDERED: MACROBID100 MG PO (18:08)
== END 2021-09-09 18:49 | disposition home or self-care (01) ==
LOC: FER 15:23
PROVIDERS: Nurse Practitioner Family
DX: N39.0 Urinary tract infection, site not specified (principal); R21 Rash and other nonspecific skin eruption; E10.9 Type 1 diabetes mellitus without complications; Z88.8 Allergy status to other drugs, medicaments and biological substances; Z28.310 Unvaccinated for COVID-19
CPT/HCPCS: 36415; 80048; 81001; 85025; 87088; 99284; J7030

== ENCOUNTER 2021-09-22 20:46 | Emergency (ER) | payer OTHER ==
[2021-09-22 21:52] LABS: BILIRUBIN NEGATIVE (NEGATIVE); BLOOD 3+ Ery/uL (NEGATIVE); COLOR YELLOW (YELLOW); GLUCOSE (U) 3+ mg/dL (NORMAL); LEUKOCYTES 2+ Leu/uL (NEGATIVE); NITRITE NEGATIVE (NEGATIVE); PROTEIN NEGATIVE (NEGATIVE); SPECIFIC GRAVITY <=1.005 (1.001-1.030); UROBILINOGEN 0.2 mg/dL (0.2-1.0)
[2021-09-22 21:58] LABS: CLARITY SLIGHTLY HAZY (CLEAR)
[2021-09-22 22:00] LABS: BACTERIA TRACE; URINARY RBC 20-50
[2021-09-22 23:51] LABS: BASOPHIL 0.7 % (0-2); EOSINOPHIL 0.6 % (0-5); HCT 40.1 % (37.0-47.0); HGB 13.5 g/dl (12.5-16.0); LYMPHOCYTE 25.1 % (15-48); MCH 29.3 pg (25.0-31.0); MCHC 33.7 g/dL (32.0-36.0); MONOCYTE 4.1 % (0-12); MPV 10.3 fL (6.0-9.5); NEUTROPHIL 69.1 % (41-80); NRBC 0; PLT 305 K/uL (150-400); RBC 4.61 M/uL (4.20-5.40); RDW 12.3 % (11.5-14.0); WBC 11.7 K/uL (4.0-10.5)
[2021-09-23 00:10] LABS: BUN/CREAT RATIO (CALC) 8.6 RATIO; CREATININE 0.58 mg/dL (0.51-0.95); POTASSIUM 3.4 mmol/L (3.5-5.1)
[2021-09-23 00:22] LABS: LACTIC ACID 0.8 mmol/L (0.4-1.9)
[2021-09-23] MEDS ORDERED: KEFLEX250 MG PO (00:29)
== END 2021-09-23 00:50 | disposition home or self-care (01) ==
LOC: FER 20:46
PROVIDERS: Nurse Practitioner Family
DX: R10.9 Unspecified abdominal pain (principal); R11.2 Nausea with vomiting, unspecified; E11.9 Type 2 diabetes mellitus without complications; Z88.2 Allergy status to sulfonamides; Z88.8 Allergy status to other drugs, medicaments and biological substances; Z28.310 Unvaccinated for COVID-19
CPT/HCPCS: 36415; 80048; 81001; 83605; 85025; 87088; J0696; J1885; J2405; J7030

== ENCOUNTER 2021-11-23 11:40 | Emergency (ER) | payer OTHER ==
[~2021-11-23 11:40] MED LIST changes: +KEFLEX250 MG PO
[2021-11-23 12:49] LABS: BILIRUBIN NEGATIVE (NEGATIVE); BLOOD TRACE-INTACT Ery/uL (NEGATIVE); CLARITY CLEAR (CLEAR); COLOR YELLOW (YELLOW); GLUCOSE (U) 3+ mg/dL (NORMAL); LEUKOCYTES TRACE Leu/uL (NEGATIVE); NITRITE NEGATIVE (NEGATIVE); PROTEIN NEGATIVE (NEGATIVE); SPECIFIC GRAVITY <=1.005 (1.001-1.030); UROBILINOGEN 0.2 mg/dL (0.2-1.0)
[2021-11-23 12:52] LABS: BASOPHIL 0.7 % (0-2); EOSINOPHIL 1.6 % (0-5); HCT 36.8 % (37.0-47.0); LYMPHOCYTE 21.9 % (15-48); MCH 29.8 pg (25.0-31.0); MCHC 35.3 g/dL (32.0-36.0); MCV 84.4 fL (78.0-100.0); MONOCYTE 4.8 % (0-12); MPV 10.1 fL (6.0-9.5); NEUTROPHIL 70.7 % (41-80); NRBC 0; PLT 296 K/uL (150-400); RBC 4.36 M/uL (4.20-5.40); RDW 12.6 % (11.5-14.0); WBC 6.8 K/uL (4.0-10.5)
[2021-11-23 13:09] LABS: BACTERIA TRACE
[2021-11-23 13:11] LABS: BUN/CREAT RATIO (CALC) 6.8 RATIO; CREATININE 0.59 mg/dL (0.51-0.95); POTASSIUM 3.6 mmol/L (3.5-5.1)
[2021-11-23] MEDS ORDERED: NORCO 5-325 TA1 EACH PO (17:03)
[2021-11-23] MEDS ORDERED: ONDANSETRON ODT4 MG PO (17:03)
== END 2021-11-23 17:30 | disposition home or self-care (01) ==
LOC: FER 11:40
PROVIDERS: Nurse Practitioner Family
DX: R10.9 Unspecified abdominal pain (principal); R11.2 Nausea with vomiting, unspecified; E10.9 Type 1 diabetes mellitus without complications; Z90.49 Acquired absence of other specified parts of digestive tract; Z88.8 Allergy status to other drugs, medicaments and biological substances
CPT/HCPCS: 36415; 80048; 81001; 85025; J1170; J1885; J2405; J7030